=== PATIENT | male | born 1965 | race Caucasian/White ===

== ENCOUNTER 2023-10-31 06:34 | Day surgery (SDC) | payer MEDICAID ==
[~2023-10-31] VITALS: Ht 170.2 cm; Wt 86.2 kg
[2023-10-31] MEDS ORDERED: MIDAZOLAM HCL 5 MG/5 ML VIAL ONE (07:06)
[2023-10-31] MEDS ORDERED: fentaNYL CITRATE/PF 100 MCG/2 ML AMP ONE (07:06)
[2023-10-31] MEDS ORDERED: SIMETHICONE 40 MG/0.6 ML ML ONE (07:17)
[2023-10-31 09:17] VITALS: O2SAT 98
[2023-10-31 10:55] VITALS: BP_SYST 117; PULSE 50; RESP 18; TEMP 97.5
== END 2023-10-31 09:30 | disposition home or self-care (01) ==
LOC: SDS 06:34 → SMU 07:02 → SDS 09:30
PROVIDERS: ATTEND Internal Medicine
DX: K59.00 Constipation, unspecified (principal); D12.1 Benign neoplasm of appendix; K29.50 Unspecified chronic gastritis without bleeding; K21.9 Gastro-esophageal reflux disease without esophagitis; I10 Essential (primary) hypertension; E78.5 Hyperlipidemia, unspecified; K57.30 Diverticulosis of large intestine without perforation or abscess without bleeding; Z98.890 Other specified postprocedural states; Z79.899 Other long term (current) drug therapy
CPT/HCPCS: 45385; 43239; 87081; 36415; 88304; 88305; 88312; 88313; 99152; 99153; G0378; J2250; J3010